=== PATIENT | male | born 1985 | race Caucasian/White ===

== ENCOUNTER 2016-08-08 12:21 | Emergency (ER) | payer OTHER ==
[~2016-08-08] VITALS: Ht 190.5 cm; Wt 120.7 kg
[~2016-08-08 12:21] MED LIST: GLUCOPHAGE500 MG PO; ZESTRIL10 MG PO
[2016-08-08 12:36] VITALS: BP 145/86
--- NOTE | 2016-08-08 12:50 | NUR ---
31/M BIB FAMILY C/O RIGHT EYE PAIN X 2 DAYS ITCHING , PT FEELS FOREIGN BODY IN OD---NOTABLE REDNESS EXTERNAL MILD SWELLING, PAIN 2/10 ITCHY/DISCOMFORT; VISUAL ACUITY : OD 20/50; OS 20/50 BOTH UNCORRECTED. AAOx4, PERRLA, BBREATHING EVEN AND UNLABORED. ERMD NOTIFIED OF PATIENT STATUS.
[2016-08-08] MEDS ORDERED: TETRACAINE 0.5% OPTH SOL 2 ML BTL ONE (12:51)
[2016-08-08] MEDS ORDERED: FLUORESCEIN OPTH STRIP 1 MG ONE (12:51)
--- NOTE | 2016-08-08 12:53 | NUR ---
Patient being evaluated by physician at bedside.
--- NOTE | 2016-08-08 13:55 | NUR ---
Patient discharged with v/s stable. Written and verbal after care instructions given and explained. Patient alert, oriented and verbalized understanding of instructions. Ambulatory with All questions addressed prior to discharge. ID band removed. Patient advised to follow up with PMD. Rx of TYLENOL WITH CODIENE#3 AND TOBRAMYCIN 0.3% OPTH SOLUTION given. Patient educated on indication of medication including possible reaction and side effects. Opportunity to ask questions provided and answered.
[2016-08-08 13:56] VITALS: BP 141/83
== END 2016-08-08 13:55 | disposition home or self-care (01) ==
LOC: MED 12:21
DX: S05.01XA Injury of conjunctiva and corneal abrasion without foreign body, right eye, initial encounter (principal); E11.9 Type 2 diabetes mellitus without complications; I10 Essential (primary) hypertension; X58.XXXA Exposure to other specified factors, initial encounter; Y93.89 Activity, other specified; Y92.89 Other specified places as the place of occurrence of the external cause; Y99.0 Civilian activity done for income or pay

== ENCOUNTER 2016-10-04 04:20 | Emergency (ER) | payer OTHER ==
[~2016-10-04] VITALS: Ht 185.4 cm; Wt 120.7 kg
[~2016-10-04 04:20] MED LIST changes: -GLUCOPHAGE500 MG PO; +LISI10TA11 PO; +METF500T PO; -ZESTRIL10 MG PO
[2016-10-04 04:25] VITALS: BP 125/70
[2016-10-04] MEDS ORDERED: NEOMYCIN/POLYMYXIN/BACITRACIN 0.9 GM/1 PKT TP ONE (04:30)
[2016-10-04] MEDS ORDERED: LIDOCAINE 1% 500 MG/50 ML VIAL INJ ONE (04:30)
[2016-10-04 04:39] VITALS: BP 125/70
== END 2016-10-04 04:45 | disposition left against medical advice (07) ==
LOC: MED 04:20
DX: S60.456A Superficial foreign body of right little finger, initial encounter (principal); E11.9 Type 2 diabetes mellitus without complications; I10 Essential (primary) hypertension; X58.XXXA Exposure to other specified factors, initial encounter; Y93.89 Activity, other specified; Y92.89 Other specified places as the place of occurrence of the external cause; Y99.8 Other external cause status
CPT/HCPCS: 90471; 90715; 99284; J2001

== ENCOUNTER 2019-02-01 22:33 | Emergency (ER) | payer OTHER ==
[~2019-02-01] VITALS: Ht 185.4 cm; Wt 121.1 kg
[2019-02-01 23:09] VITALS: BP 138/96
--- NOTE | 2019-02-01 23:18 | NUR ---
PT AMBULATED TO LOBBY WITH VSS.
--- NOTE | 2019-02-01 23:23 | NUR ---
PT TAKEN TO RAD VIA WHEELCHAIR
--- NOTE | 2019-02-01 23:33 | NUR ---
PT RETURNED TO LAB Addendum: 02/01/19 at 2345 by [email or web address] PT RETURNED TO LOBBY
--- NOTE | 2019-02-01 23:40 | NUR ---
PT AMBULATED TO BED #12
--- NOTE | 2019-02-02 | NUR ---
34 Y/O MALE PRESENTS TO ED, C/O RIGHT SHOULDER PAIN 11/20. 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 PT HAS LIMITED ROM ON RIGHT SHOULDER. 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 BILAT STRONG RADIAL PULSES. PT DENIES ANY HEAD INJURY. DENIES HEADACHE/DIZZINESS. PT STABLE. ERMD AWARE. WILL CONTINUE TO MONITOR.
[2019-02-02] MEDS ORDERED: KETOROLAC 60 MG/2 ML VIAL IM ONE (00:10)
--- NOTE | 2019-02-02 01:40 | NUR ---
PT RIGHT SHOULDER PLACED IN SHOULDER IMMOBILZER, IMMOBILZER FITTED TO PTS RIGHT ARM PT CMS BEFORE AND AFTER AND WNL, PT STATES FELT COMFORTABLE IN SLING
[2019-02-02 01:45] VITALS: BP 141/88
--- NOTE | 2019-02-02 01:45 | NUR ---
PT DISCHARGED WITH PAPERWORK. RX ANIL GARCIA. EDUCATED PT REGARDING MEDICATIONS AND S/E. EDUCATED PT REGARDING D/C DIAGNOSIS AND INSTRUCTIONS. PT VERBALIZED UNDERSTANDING OF TEACHING. TOLD PT TO FOLLOW UP WITH PCP AND WHEN TO RETURN TO ED. PT STABLE CONDITION. ALL QUESTIONS ANSWERED.
== END 2019-02-02 01:45 | disposition home or self-care (01) ==
LOC: MED 22:33
DX: S43.101A Unspecified dislocation of right acromioclavicular joint, initial encounter (principal); E11.9 Type 2 diabetes mellitus without complications; I10 Essential (primary) hypertension; W19.XXXA Unspecified fall, initial encounter; Y93.89 Activity, other specified; Y92.89 Other specified places as the place of occurrence of the external cause; Y99.8 Other external cause status; Z79.899 Other long term (current) drug therapy; Z79.84 Long term (current) use of oral hypoglycemic drugs
CPT/HCPCS: 29105; 73030; 96372; 99283; J1885

== ENCOUNTER 2023-05-07 17:05 | Emergency (ER) | payer OTHER ==
[~2023-05-07 17:05] MED LIST changes: +LISI-486 PO; -LISI10TA11 PO; +METF-346 PO; -METF500T PO
== END 2023-05-07 18:13 | disposition left against medical advice (07) ==
LOC: MED 17:05
DX: R06.02 Shortness of breath (principal); Z53.21 Procedure and treatment not carried out due to patient leaving prior to being seen by health care provider

== ENCOUNTER 2023-08-29 22:21 | Emergency (ER) | payer OTHER ==
[~2023-08-29] VITALS: Ht 185.4 cm; Wt 113.9 kg
[~2023-08-29 22:21] MED LIST changes: -LISI-486 PO; +LISI-951 PO
[2023-08-29 22:29] VITALS: BP 122/88; PULSE 113; RESP 16; TEMP 98.6; O2SAT 98
[2023-08-29 22:56] LABS: BASOPHILS % (AUTO) 0.2 % (0.0-2.0); EOSINOPHILS # (AUTO) 0.1 K/uL (0-0.4); EOSINOPHILS % (AUTO) 1.5 % (0.0-4.0); HEMATOCRIT 43.5 % (36-52); LYMPHOCYTES # (AUTO) 2.5 K/uL (2.0-11.5); LYMPHOCYTES % (AUTO) 29.3 % (20.5-51.1); MEAN CORPUSCULAR HEMOGLOBIN 36 pg (27-31); MEAN CORPUSCULAR HGB CONC 34 g/dL (33-37); MEAN CORPUSCULAR VOLUME 105.3 fL (80-94); MONOCYTES # (AUTO) 0.6 K/uL (0.8-1.0); MONOCYTES % (AUTO) 7.4 % (1.7-9.3); NEUTROPHILS # (AUTO) 5.2 K/uL (1.8-7.7); NEUTROPHILS % (AUTO) 61.6 % (42.2-75.2); PLATELET COUNT (AUTO) 153 K/uL (140-450); RED BLOOD CELL COUNT(AUTO) 4.13 MIL/uL (4.20-6.10); RED CELL DISTRIBUTION WIDTH 15.3 % (11.6-13.7); WHITE BLOOD COUNT (AUTO) 8.5 K/uL (4.8-10.8)
[2023-08-29 23:05] LABS: CALCIUM 8.7 mg/dL (8.5-10.1)
[2023-08-29 23:11] LABS: APPEARANCE,URINE CLEAR (CLEAR); BILIRUBIN,URINE 2+ (NEGATIVE); BLOOD, URINE NEGATIVE (NEGATIVE); COLOR,URINE YELLOW (YELLOW); ICTOTEST POSITIVE (NEGATIVE); LEUKOCYTE ESTERASE ,URINE NEGATIVE (NEGATIVE); NITRITE, URINE NEGATIVE (NEGATIVE); PROTEIN,URINE NEGATIVE (NEGATIVE); UGLUCOSE 3+ (NEGATIVE); UROBILINOGEN,URINE 0.2 EU/dL (0.2 - 1)
[2023-08-29 23:12] LABS: ALBUMIN 2.5 g/dL (3.4-5.0); BILIRUBIN,DIRECT 5.7 mg/dL (0.0-0.3); TOTAL BILIRUBIN 6.8 mg/dL (0.0-1.0); TOTAL PROTEIN, SERUM 7.6 g/dL (6.4-8.2)
[2023-08-29 23:13] VITALS: O2SAT 97
[2023-08-29 23:23] LABS: AMPHETAMINE, URINE NEGATIVE ng/ml (NEG <=1000); BARBITURATE, URINE NEGATIVE ng/ml (NEG <=200); BENZODIAZEPINE, URINE NEGATIVE ng/mL (NEG <=200); CANNABINOID, URINE NEGATIVE ng/mL (NEG <=50); COCAINE, URINE NEGATIVE ng/mL (NEG <=300); OPIATE, URINE NEGATIVE ng/mL (NEG <=2000); PHENCYCLIDINE SCREEN,URINE NEGATIVE ng/mL (NEG <=25)
[2023-08-30] MEDS: NACL 0.9% 1,000 ML IV ONE (00:08)
[2023-08-30] MEDS: POTASSIUM CHLORIDE 20% 40 MEQ/15 ML UDC PO ONE (00:12)
[2023-08-30] MEDS: chlordiazePOXIDE 25 MG CAP PO ONE (00:13)
[2023-08-30 00:16] LABS: INR 1.85 (0.8-1.2); PROTHROMBIN TIME 18.9 secs (10.8-13.4)
[2023-08-30] MEDS: ONDANSETRON 4 MG/2 ML VIAL IVP ONE (00:17)
[2023-08-30] MEDS: FAMOTIDINE 20 MG/2 ML VIAL IVP ONE (00:18)
[2023-08-30] MEDS: MAG SULF 2000 MG/WATER PREMIX 50 ML IV ONE (00:19)
[2023-08-30] MEDS ORDERED: FAMO-90 PO (02:47)
[2023-08-30] MEDS ORDERED: ONDA-188 SL (02:47)
[2023-08-30 02:55] VITALS: BP 120/83; PULSE 110; RESP 18; TEMP 98.2; O2SAT 97
== END 2023-08-30 02:55 | disposition home or self-care (01) ==
LOC: MED 22:21
DX: K70.30 Alcoholic cirrhosis of liver without ascites (principal); E87.20 Acidosis, unspecified; E87.6 Hypokalemia; R79.1 Abnormal coagulation profile; E88.09 Other disorders of plasma-protein metabolism, not elsewhere classified; E80.6 Other disorders of bilirubin metabolism; E11.9 Type 2 diabetes mellitus without complications; I10 Essential (primary) hypertension; F17.200 Nicotine dependence, unspecified, uncomplicated; Z79.4 Long term (current) use of insulin; Z79.899 Other long term (current) drug therapy
CPT/HCPCS: 36415; 74176; 80048; 80076; 80305; 81003; 82550; 83605; 83690; 83880; 85025; 85610; 87040; 93005; 96365; 96366; 96375; 99285; J2405; J3475; J3490; J7030